=== PATIENT | female | born 1950 | race Caucasian/White ===

== ENCOUNTER → 2017-08-27 15:02 | Outpatient (CLI) | payer MEDICARE, SELFPAY ==
--- NOTE | 2017-08-27 15:08 | MM_ITS ---
. MM Dig screening mamm BI w/CAD CAD Screening ORDERING PHYSICIAN : Zack Ferrari MD PATIENT AGE: 67 years GENDER: Female COMPARISON: Previous mammograms: March 2008 and March 2010 and March 2006 weeks for comparison. INDICATION: Does taking female hormones. No new complaints. Noncontributory family history TECHNIQUE: Standard CC and MLO images were obtained. R2 CAD reviewed. FINDINGS: Inhomogeneous asymmetric areas of moderately dense breast is seen throughout the superior breast bilaterally. RIGHT BREAST: No new areas of concern Stable appearance to the fibroglandular glandular most evident throughout the superior breast. LEFT BREAST:No new areas of concern. Again stable inhomogeneous tissue 5 glandular elements throughout the superior breast is similar to previous studies IMPRESSION: No significant interval change. Stable mammogram. Follow follow-up one year recommended and encouraged . BI-RADS Category: 2 Benign Finding(s) RECOMMENDED FOLLOW-UP: 1YR - 1 YEAR FOLLOW-UP (A letter has been sent to the patient regarding results of the study.)
--- NOTE | 2017-08-27 15:09 | CT_ITS ---
EXAM: CT LUNG LOW DOSE WO CONTRAST COMPARISON: None HISTORY: 67 year old female with 30 pack-year smoking history asymptomatic ORDERING PHYSICIAN: Zack Ferrari MD PATIENT AGE: 67 years TECHNIQUE: The exam was performed on a GE Light Speed [address] scanner using 2.90 mGy CTDI. A low dose helical CT CHEST was performed on a multi-detector scanner. All CT scans at the facility use one or more dose reduction, viz: automated exposure control; ma/kV adjustment per patient size (including targeted exams where dose is matched to indication; i.e. head); or iterative reconstruction technique. The LDCT was performed in a facility that meets the criteria for the screening program. Data regarding this exam was submitted to ACR which is an approved registry. The order for this exam indicates that it came as a result of a lung cancer screening counseling shard decision-making visit that included all the elements required of such a visit including smoking cessation. The radiologist interpreting this exam meets the CMS criteria for the LDCT lung cancer screening program. The exam is reported using the Lung-RADS classification scale and reported to the ACR registry. NOTE: This study was performed for the specific purposes of lung cancer screening and is not an alternative to diagnostic chest CT. RADIATION DOSE: CTDI vol(CT dose Index-volume) = 2.90mG DLP (Dose Length Product) = 98.88 mGcm FINDINGS: There are a few scattered benign-appearing nodular opacities in the lungs including a calcified granuloma in the left upper lobe. A 3 mm noncalcified nodule is present in the right upper lobe. There are a few subpleural nodular opacities. There is are all less than 4 mm. There is mild bronchial thickening with mild hyperinflation consistent with obstructive chronic bronchitis. There are a few calcified nodes in the left hilum. No central obstructing lesions.. IMPRESSION: 1. Lung RADS Category: 2, benign 2. Other findings: Obstructive chronic bronchitis Old granulomatous disease RECOMMENDATIONS: 12 month LDCT screening follow-up
== END ==
PROVIDERS: PCP Family Medicine; Visit Provider Family Medicine
DX: Z12.31 Encounter for screening mammogram for malignant neoplasm of breast (principal); Z87.891 Personal history of nicotine dependence; Z12.2 Encounter for screening for malignant neoplasm of respiratory organs
CPT/HCPCS: 77067

== ENCOUNTER → 2018-04-20 07:57 | Outpatient (CLI) | payer MEDICARE, SELFPAY ==
[2018-04-20 08:19] LABS: Blood Urea Nitrogen 22 mg/dL (7-18); Creatinine,Serum 0.93 mg/dL (0.55-1.02); Estimated Glomerular Filt Rate 60 ml/min (>60); GFR (African American) 73 ML/MIN (>60)
--- NOTE | 2018-04-20 08:27 | MR_ITS ---
MR head/brain wo/w con Ordering Physician: Zack Ferrari MD Patient Age: 68 years: Female HISTORY: ITS.REASON: MEMORY LOSS, HX PRESENILE DEMENTIA Family history dementia. Preseniledementia.. Patient reports memory loss history and cognitivechanges.. She will be talking and will say word that she did not intend. TECHNIQUE: Pre and postcontrast imaging of brainon 1.5 T. Siemens, MRI. . : Precontrast Multiplanar FLAIR, T1, T2 weighted images along with axial diffusion/ADC imaging performed Postcontrast imaging Following 12 mL ProHance T1-weighted images axial & coronal plane performed COMPARISON :No previous brain studies FINDINGS No mass lesion. No mass effect No abnormal areas of enhancement. No territorial infarct. .Diffusion images reveal no acute or recent infarct or ischemia.. The FLAIR images do numerous scattered small vessel deep white matter high signal ischemic gliotic changes surrounding the lateral ventricles bilaterally. These high signal foci most numerous & evident above the superior margin body of lateral ventricles as seen on coronal FLAIR images.. With these would also specifically note Small lacunar infarct measuring less than 4 mm seen at the deep white matter just above the left lateral ventricle. Only few small subcortical white matter high signal foci noted otherwise . The basal ganglia demonstrate show no high signal FLAIR foci. Only note Generous perivascular spaces on left basal ganglia more so than right. Brain with normal anatomy. Ventricles and basal cisterns normal. Cranial cervical junction is normal. Sella and region of pituitary and suprasellar region unremarkable. Posterior fossa. CP angles clear. No abnormal enhancement here. IACs symmetric. Normal dural venous sinuses Mastoid air cells well-developed may be opacification of one or 2 mastoid air cells and mastoid tip reflecting only scant mastoid effusion feature. Unimpressive barely evident Orbits unremarkable. The visualized paranasal sinuses are well-developed and overall clear.. Only tiny focal polypoid area of mucosal thickening at the posterior right maxillary sinus. 7 mm size. Engorgement nasal turbinates with mild deviation nasal septum. Convexity nasal septum to the left superiorly at the level of the middle turbinates. IMPRESSION------ 1. No mass lesion. No abnormal areas of enhancement. No territorial infarct Brain with normal anatomy 2. Chronic small vessel deep white matter ischemic gliotic changes bilaterally. Numerous small high signal foci in Most evident along, & overlying the lateral ventricles bilaterally. A few more peripheral subcortical high signal foci also
--- NOTE | 2018-04-20 09:50 | HMH.ITSHM ---
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 []ASPIRIN ESTRADIOL LISINOPRIL HYDROCHLOROTHIAZIDE CLOPIDOGREL ALPRAZOLAM PRAVASTATIN ESCITALOPRAM
== END ==
PROVIDERS: Visit Provider Family Medicine
DX: R41.3 Other amnesia (principal); Z81.8 Family history of other mental and behavioral disorders
CPT/HCPCS: 36415; 70553; 82565; 84520; A9576

== ENCOUNTER → 2018-04-25 15:00 | Outpatient (CLI) | payer MEDICARE, SELFPAY | PROVIDERS: PCP Family Medicine; Visit Provider Family Medicine | DX: G47.33 Obstructive sleep apnea (adult) (pediatric) (principal) | CPT/HCPCS: 95806 ==

== ENCOUNTER → 2018-08-22 10:09 | Outpatient (CLI) | payer MEDICARE, SELFPAY ==
--- NOTE | 2018-08-22 10:14 | CA_ITS ---
PROCEDURE: 2-D M-mode and color Doppler study INDICATIONS FOR THE TEST: Chest pain COPD Heart Murmur+ Tobacco Smoking Palpitations Fatigue Syncope Edema Hypertension+Diabetes Mellitus Rheumatic Fever SOB SMALL Obesity Hyperlipidemia+ Family History HD Additional History PATIENT INFORMATION HEIGHT: 68 WEIGHT:172 GENDER: Female B/P:117/58 2-D/M-MODE INTERPRETATION: 2-D MEASUREMENTS OBSERVED VALUES IN CMS Right Ventricular Dimension (RVDd) 1.5 Interventricular Septum (Thickness)(IVsd) 1.4 Left Ventricular Internal Dimensions(LVIDd) 4.2 Left Ventricular Posterior Wall (Thickness)(LVPWd) 0.8 Aortic Root 2.9 Aortic Cusp Separation 1.9 Left Atrial Dimensions (LAD) 3.2 2D 1. Left atrium is mildly enlarged, left ventricle is normal size, mild concentric left ventricular hypertrophy, visually estimated ejection fraction 55% with no regional wall motion abnormality. 2. The right atrium and right ventricle are normal size and contractility. 3. The aortic valve is minimally thickened and fibrosed. 4. The mitral and tricuspid valve leaflets are minimally thickened. 5. The pulmonic valve is poorly visualized. 6. No significant pericardial effusion noted. DOPPLER INTERROGATION: Doppler interrogation of the aortic, mitral and tricuspid valve reveals presence of mild mitral and tricuspid regurgitation, tricuspid regurgitation jet velocity is inadequate for calculation of the right ventricular systolic pressure, grade 2 diastolic dysfunction seen with tissue Doppler evidence of raised left atrial pressure. Inferior vena cava is mildly dilated without significant respiratory collapse. CONCLUSION: 1. Mildly enlarged left atrium, normal left ventricular size, mild concentric left ventricular hypertrophy, visually estimated ejection fraction 55% with no regional wall motion abnormality, grade 2 diastolic dysfunction seen with tissue Doppler evidence of raised left atrial pressure. 2. Mild mitral and tricuspid regurgitation, inferior vena cava is mildly dilated without significant respiratory collapse 3. No significant pericardial effusion noted
== END ==
PROVIDERS: PCP Family Medicine; Visit Provider Family Medicine
DX: I35.8 Other nonrheumatic aortic valve disorders (principal)
CPT/HCPCS: 93306

== ENCOUNTER → 2019-01-04 12:40 | Outpatient (CLI) | payer MEDICARE, SELFPAY ==
--- NOTE | 2019-01-04 | US_ITS ---
US Arterial lower stress History: Previous smoker, hypertension, claudication ORDERING PHYSICIAN: Zack Ferrari MD PATIENT AGE: 68 years TECHNIQUE: Segmental pressures obtained of both right and left leg. These are compared to brachial blood pressure to yield index at each level sampled including summary LG. The data sheets from the procedure are available in PACS FINDINGS Rest and stress exam is performed No prior studies available for comparison. Blood pressures reported are in millimeters mercury. Rest pressures: RIGHT LEG LG = 0.9. RIGHT LEG TBI=0.7 Brachial BP: 141 Thigh BP: 125 Calf BP: 135 Ankle PT: 123 Ankle DP : 103 Digit =95 LEFT LEG LG = 0.9 LEFT LEG TBI= 0.7 Brachial BPD: 134 Thigh BP: 116 Calf BP: 142 Ankle PT:127 Ankle DP: 113 Digit = 92 Pulses and waveforms: Normal Patient was then asked to exercise per the routine protocol. Once peak heart rate was reached immediate ABIs were obtained demonstrating a right LG of 0.5 and the left LG of 0.4. At 1 minute the right LG was 0.7 and the left LG was 0.5. At 2 minutes and the right LG was 0.8 and left LG is 0.7. At 3 minutes the right LG is 0.9 and left LG is 0.7. At 4 minutes the right LG was 1.0 and left LG was 0.8. The study was then discontinued. The patient reported bilateral leg pain from the calves up to the thighs region a scale of 5 out of 10. IMPRESSION: There was exercised induced bilateral lower extremity leg pain and decrease in the ABIs. ABIs were normal at rest but did decrease with peak exercise consistent with underlying peripheral vascular disease of the lower extremities. CT angiogram may further evaluated if clinically warranted..
== END ==
PROVIDERS: PCP Family Medicine; Visit Provider Family Medicine
DX: I70.213 Atherosclerosis of native arteries of extremities with intermittent claudication, bilateral legs (principal)
CPT/HCPCS: 93924

== ENCOUNTER → 2020-06-14 09:34 | Outpatient (CLI) | payer MEDICARE, SELFPAY ==
--- NOTE | 2020-06-14 | CA_ITS ---
APPROVED REPORT Curator Of Manuscripts: Jessica Villarreal RVT Laterality: Bilateral Study Quality: Good Indications: CVA/TIA: , Carotid stenosis,Lt endadectomy with stent Risk Factors TIA/CVA History Surgery/Intervention Endarterectomy: left Doppler Spectral Velocity Analysis ECA (R) 137.10/23.10 cm/s ECA (L) 182.80/18.80 cm/s dICA (R) 66.60/24.30 cm/s dICA (L) 129.50/20.90 cm/s Danya (R) 620.80/200.00 cm/s Danya (L) 140.70/15.30 cm/s pICA (R) 87.70/31.00 cm/s pICA (L) 241.00/52.90 cm/s dCCA (R) 85.50/16.00 cm/s dCCA (L) 70.50/20.50 cm/s pCCA (R) 56.70/13.90 cm/s pCCA (L) 70.50/19.20 cm/s Vert (R) 107.60/20.50 cm/s Vert (L) 143.50/18.10 cm/s ICA/CCA 7.26 ICA/CCA 3.42 Findings Study suggests 70-99% stenosis (upper end of scale) of the right internal cartoid artery. Study suggests 50-69% stenosis (upper end of scale) of the left internal cartoid artery. Antegrade flow seen bilateral vertebral arteries. 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 Study suggests 50-69% stenosis (upper end of scale) of the left internal cartoid artery. Antegrade flow seen bilateral vertebral arteries. Critical Notification Critical Value: Yes Physician Notified Date: 06/14/2020 Time: 10:20 Physician Name: Dr Ferrari Electronically signed by : Kwame Mcgovern MD 06/14/2020 17:51:47
== END ==
PROVIDERS: PCP Family Medicine; Visit Provider Family Medicine
DX: I65.23 Occlusion and stenosis of bilateral carotid arteries (principal); R29.898 Other symptoms and signs involving the musculoskeletal system
CPT/HCPCS: 93880

== ENCOUNTER → 2021-03-05 11:20 | Outpatient (CLI) | payer MEDICARE, SELFPAY ==
--- NOTE | 2021-03-05 11:24 | XR_ITS ---
PROCEDURE: XR CHEST 2V CLINICAL HISTORY: DSYPNEA ON EXERTION, CDHF COMPARISON: No exams were available for comparison FINDINGS: The cardiomediastinal silhouette and pulmonary vascularity are within normal limits. No lobar consolidation or collapse. Faint increased density right upper lobe laterally overlying the 2nd interspace anteriorly. This may only be due to overlapping vessels. Small area of atelectasis or fibrosis also consideration. No acute bony abnormalities. IMPRESSION: Summation artifact versus small area of atelectasis or fibrosis in the right upper lobe Dictated by: Kwame Mcgovern MD 03/05/2021 12:37 Kwame Mcgovern MD in [place] 03/05/2021 12:37
== END ==
PROVIDERS: PCP Family Medicine; Visit Provider Family Medicine
DX: R06.09 Other forms of dyspnea (principal); I50.32 Chronic diastolic (congestive) heart failure
CPT/HCPCS: 71046

== ENCOUNTER → 2021-04-07 12:41 | Outpatient (CLI) | payer MEDICARE, SELFPAY ==
[2021-04-07 13:30] VITALS: PULSE 74; PULSE 79
== END ==
PROVIDERS: PCP Family Medicine; Visit Provider Family Medicine
DX: R06.09 Other forms of dyspnea (principal); Z87.891 Personal history of nicotine dependence
CPT/HCPCS: 94060; 94618; 94640; 94727; 94729

== ENCOUNTER → 2021-07-14 15:12 | Outpatient (CLI) | payer MEDICARE, SELFPAY ==
--- NOTE | 2021-07-14 15:13 | CT_ITS ---
FINAL REPORT CLINICAL HISTORY: lung cancer screening former smoker- quit x10 years ago when patient did smoke, smoked 1ppd x 38 years COMPARISON: August 27, 2017 FINDINGS: Low-Dose Chest CT CTDI vol (mGy): 2.90 DLP (mGy-cm): 91.69 Axial images were obtained from the lung apex to the mid abdomen by computed tomography. Low-dose protocol was utilized. FINDINGS: CHEST: There is no axillary adenopathy. There is no hilar or mediastinal adenopathy. The heart is proper size. There is no pericardial or pleural effusion. Limited images of the upper abdomen are unremarkable. Lung window images demonstrate moderate peripheral interstitial fibrosis/scarring which is significantly worse. There is mild emphysema. There is a ground-glass nodule in the right upper lobe measuring 5 mm seen on image 32, was 3 mm and appears significantly worse. There are several other smaller right upper lobe nodules measuring up to 5 mm. IMPRESSION: Lung RADS category 4A. Recommend 3 month follow-up low-dose chest CT. Reviewed, Interpreted and Dictated by Mike Alonso III, MD Transcribed by Sally Khan Authenticated by Mike Alonso III, MD on 07/14/2021 04:12:40 PM [facility]
== END ==
PROVIDERS: PCP Family Medicine; Visit Provider Internal Medicine Pulmonary Disease
DX: Z87.891 Personal history of nicotine dependence (principal); Z12.2 Encounter for screening for malignant neoplasm of respiratory organs
CPT/HCPCS: 71271

== ENCOUNTER → 2021-07-17 11:19 | Outpatient (CLI) | payer MEDICARE, SELFPAY ==
[2021-07-17 12:19] LABS: Basophils # 0.1 K/mm3 (0-0.2); Eosinophils # 0.3 K/mm3 (0.0-0.4); Eosinophils % 3.2 % (0.1-12.0); Hematocrit 37.4 % (37.0-47.0); Hemoglobin 12.2 g/dL (12.2-16.2); Lymphocytes # 2.3 K/mm3 (0.7-4.5); Lymphocytes % 25.2 % (10-50); Mean Corpuscular HGB Conc 32.6 g/dL (31.8-35.4); Mean Corpuscular Hemoglobin 30.6 pg (27.0-31.2); Mean Corpuscular Volume 94.1 fl (81-99); Mean Platelet Volume 8.8 fl (7.4-10.4); Monocytes # 0.5 K/mm3 (0.1-1.0); Monocytes % 5.8 % (1.7-9.3); Neutrophils # 5.9 K/mm3 (1.8-7.8); Neutrophils % 64.9 % (37.0-80.0); Platelet Count 300 K/mm3 (142-424); Red Blood Count 3.97 M/mm3 (4.20-5.40); Red Cell Distribution Width 13.9 % (11.5-17.5)
[2021-07-18 17:48] LABS: Cytoplasmic (C-ANCA) <1:20 titer (Neg:<1:20); Perinuclear (P-ANCA) <1:20 titer (Neg:<1:20)
[2021-07-18 23:07] LABS: Anti-Cyclic Citrullinated Pept 6 units (0-19)
[2021-07-23 08:18] LABS: D001-IgE D pteronyssinus <0.10 kU/L (Class 0); D002-IgE D farinae <0.10 kU/L (Class 0); E001-IgE Cat Dander <0.10 kU/L (Class 0); E005-IgE Dog Dander <0.10 kU/L (Class 0); E072-IgE Mouse Urine <0.10 kU/L (Class 0); G002-IgE Bermuda Grass 0.11 kU/L (Class 0/I); G006-IgE Timothy Grass <0.10 kU/L (Class 0); I006-IgE Cockroach, German <0.10 kU/L (Class 0); Immunoglobulin E, Total 77 IU/mL (6-495); M001-IgE Penicillium chrysogen <0.10 kU/L (Class 0); M002-IgE Cladosporium herbarum <0.10 kU/L (Class 0); M003-IgE Aspergillus fumigatus <0.10 kU/L (Class 0); M006-IgE Alternaria alternata <0.10 kU/L (Class 0); T003-IgE Common Silver Birch <0.10 kU/L (Class 0); T006-IgE Cedar, Mountain <0.10 kU/L (Class 0); T007-IgE Oak, White 0.13 kU/L (Class 0/I); T008-IgE Elm, American 0.11 kU/L (Class 0/I); T010-IgE Walnut 0.11 kU/L (Class 0/I); T011-IgE Maple Leaf Sycamore 0.12 kU/L (Class 0/I); T014-IgE Cottonwood <0.10 kU/L (Class 0); T015-IgE Ash, White 0.11 kU/L (Class 0/I); T022-IgE Pecan, Hickory <0.10 kU/L (Class 0); T070-IgE White Mulberry <0.10 kU/L (Class 0); W001-IgE Ragweed, Short 0.11 kU/L (Class 0/I); W011-IgE Thistle, Russian 0.11 kU/L (Class 0/I); W014-IgE Pigweed, Common <0.10 kU/L (Class 0); W018-IgE Sheep Sorrel 0.16 kU/L (Class 0/I)
[2021-07-23 11:24] LABS: Aspergillus fumigatus IgG Negative (Negative); Pigeon Serum Abs Negative (Negative)
[2021-08-05 10:06] LABS: Antinuclear Antibodies (ANA) NEGATIVE
== END ==
PROVIDERS: PCP Family Medicine; Visit Provider Internal Medicine Pulmonary Disease
DX: J84.9 Interstitial pulmonary disease, unspecified (principal); R06.00 Dyspnea, unspecified; J44.9 Chronic obstructive pulmonary disease, unspecified; J45.909 Unspecified asthma, uncomplicated; J98.4 Other disorders of lung
CPT/HCPCS: 36415; 82785; 85025; 86003; 86038; 86140; 86200; 86225; 86235; 86256; 86331; 86431; 86602; 86606; 86609

== ENCOUNTER → 2021-10-07 13:01 | Outpatient (CLI) | payer MEDICARE, SELFPAY ==
[2021-10-07 13:40] VITALS: PULSE 65; PULSE 70
--- NOTE | 2021-10-07 14:54 | CT_ITS ---
FINAL REPORT TECHNIQUE: Supine inspiration and expiration and prone inspiration high-resolution images of the chest were obtained. Coronal reformatted images were obtained. CLINICAL HISTORY: soa COMPARISON: July 14, 2021 FINDINGS: There is no axillary adenopathy. There is no hilar or mediastinal adenopathy. Heart size is normal. There is no pericardial or pleural effusion. Limited images of the upper abdomen demonstrates a fatty infiltrated liver. On the lung window images there is moderate peripheral interstitial fibrosis. There are mild changes of emphysema. There is no evidence of bronchiectasis or air trapping. There is a calcified granuloma in the left lung. There is a stable 5 mm nodule in the right upper lobe seen on image 26 of series 2. IMPRESSION: Stable moderate fibrosis. Stable right upper lobe nodule. Recommend additional chest CT follow-up in 6 months. Reviewed, Interpreted and Dictated by Mike Alonso III, MD Transcribed by Sally Khan Authenticated by Mike Alonso III, MD on 10/07/2021 04:32:44 PM [facility]
== END ==
PROVIDERS: PCP Family Medicine; Visit Provider Internal Medicine Pulmonary Disease
DX: R06.00 Dyspnea, unspecified (principal); R06.02 Shortness of breath
CPT/HCPCS: 71250; 94060; 94618; 94640; 94727; 94729

== ENCOUNTER → 2022-02-24 15:29 | Outpatient (CLI) | payer MEDICARE, SELFPAY ==
--- NOTE | 2022-02-24 15:32 | MM_ITS ---
PROCEDURE INFORMATION: Exam: MG Bilateral Screening 3D Mammography Exam date and time: 02/24/2022 3:34 PM Age: 72 years old Clinical indication: Screening examination TECHNIQUE: Imaging protocol: Bilateral Screening tomosynthesis and 2D mammography including computer-aided detection (CAD) when performed. COMPARISON: 1. MG SCBI MM Dig screening mamm BI w/CAD 08/27/2017 3:26 PM 2. MG DIG MAMMO BILAT SCREENING 03/13/2010 6:13 PM FINDINGS: MAMMOGRAPHY: Breast composition: The breasts are heterogeneously dense, which may obscure small masses. Mass: None. Architectural distortion: None. Calcifications: No suspicious calcifications. Asymmetric density: None. Skin thickening: None. Axillary adenopathy: None. IMPRESSION: No mammographic evidence of malignancy. Annual screening is recommended unless otherwise clinically indicated. ASSESSMENT: BI-RADS Category 1: Negative
== END ==
PROVIDERS: PCP Family Medicine; Visit Provider Family Medicine
DX: Z12.31 Encounter for screening mammogram for malignant neoplasm of breast (principal)
CPT/HCPCS: 77063; 77067